=== PATIENT | female | born 1985 | race Caucasian/White ===

== ENCOUNTER 2024-05-15 10:31 | Outpatient (CLI) | payer OTHER, SELFPAY ==
--- NOTE | ~2024-05-15 | MM_ITS ---
EXAMINATION: MM diag david implant BI w franco HISTORY: New baseline following right breast lumpectomy TECHNIQUE: 3-D tomosynthesis images of the breasts were performed and synthetic 2-D images were gener ated. CAD analysis was submitted and interpreted. COMPARISON: 09/17/2021 BREAST PARENCHYMAL COMPOSITION:Dense: The breasts are heterogeneously dense, which may obscure small masses. FINDINGS: Focal distortion in the right central subareolar breast is likely postoperative in nature. No suspicious mass lesion or suspicious microcalcifications identified. Bilateral breast implants are in place. IMPRESSION: No mammographic evidence for malignancy. Probable postoperative distortion in the right subareolar re gion. Six-month follow-up mammogram of the right breast recommended to assure stability of presumed p ostoperative findings. BI-RADS category 3, probably benign findings. Reviewed, dictated and finalized at location . [facility] IMPRESSION: No mammographic evidence for malignancy. Probable postoperative distortion in t he right subareolar region. Six-month follow-up mammogram of the right breast r ecommended to assure stability of presumed postoperative findings. BI-RADS category 3, probably benign findings.
== END 2024-05-15 10:32 | disposition home or self-care (01) ==
LOC: ANHIMG 10:35
DX: N63.10 Unspecified lump in the right breast, unspecified quadrant (principal); R92.8 Other abnormal and inconclusive findings on diagnostic imaging of breast
CPT/HCPCS: 77062; 77066; G0279

== ENCOUNTER 2024-11-13 10:51 | Outpatient (CLI) | payer OTHER, SELFPAY ==
--- NOTE | ~2024-11-13 | MM_ITS ---
EXAMINATION: MM diag david implant RT w franco HISTORY: Prior right lumpectomy TECHNIQUE: 3-D tomosynthesis images of the right breast were performed and synthetic 2-D images were generated. CAD analysis was submitted and interpreted. COMPARISON: 05/15/2024 BREAST PARENCHYMAL COMPOSITION:Not Dense. There are scattered areas of fibroglandular density. FINDINGS: Stable parenchymal appearance of the right breast. No suspicious mass lesion or distortion. No suspicious mass or calcification. IMPRESSION: No mammographic evidence for malignancy. BI-RADS Category 2: Benign finding(s). Reviewed, dictated and finalized at location .
--- OUTSIDE RECORDS SUMMARY | 2024-11-13 11:15 | XMS_ITS | Continuity of Care Document ---
Author Name [facility] Organization [facility] Care Team Providers Care Informatica Developer Name Role Phone [facility] Unavailable Unavailable Problems Combined list of problems from Department of Defense and Veterans Affairs facilities. It does not include entries that were removed or entered in error. 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 0055C[facility] Migraine with aura3 Active 10/10/19 14 Condition Outside Source Comment: Overview: Reports h/o 'silent migraine' with blurry vision without pain Last Assessment & Plan: Outside of , ok to take excedrin as needed, caffeine/ibupro fen/tylenol may be helpful at onset of headache. History indicates aura is typical; discussed with patient that contraceptive options will likely not include combined estrogen-proges terone contraceptives. 005-[facility] Generalized hyperhidrosis2 Active 05/13/20 11 Condition Outside Source Comment: Overview: S/P nerve surgery -[facility] Hypothyroidism Active 05/13/20 11 Condition 0055C[facility] Acute pharyngitis, unspecified Active Condition DoD Adjustment disorder with anxiety Active Condition [address] [place] [address] MAX 3 - Cervical intraepithelial neoplasia grade 3 Active Condition 0055C-[facility] DCIS of breast Active Condition 5C-3 [facility] Mass in right breast Active Condition [address] [place] [address] Palpitations Active Condition [facility] Seasonal allergy Active Condition [address] [place] [address] Allergies, Adverse Reactions, Alerts Combined list of allergies from Department of Defense and Veterans Affairs facilities. It does not include entries that were removed or entered in error. Substance Category Reaction Severity Reaction type Status Date Reported Comments Source Latex Allergy to substance Rash Moderate Active -375 [facility] tenzin No Known Allergies Drug allergy (disorder) active 01/08/2023 [employer] Immunizations Combined list of available immunizations from the Department of Defense and Veterans Affairs facilities. Immunization Series Date Given Administered By Site Reaction Lot Number CVX Code Drug Tire Changer Status Comments Source COVID-19, mRNA, LNP-S, PF, 100 mcg or 50 mcg dose 2020 KOST[place]KA, Moderna US[employer] (MOD) Not Given COVID-19, mRNA, LNP-S, PF, 100 mcg or 50 mcg dose DoD COVID Vaccine Moderna 2020 DUONG ER 207 complet ed Result Comment: Unit: Unknown Manufactu rer: Moderna US, Inc. (MOD) 0055C-3 [facility] COVID-19, mRNA, LNP-S, PF, 100 mcg or 50 mcg dose 2020 KOSTECKA, Modern[employer] US[employer] (MOD) Not Given COVID-19, mRNA, LNP-S, PF, 100 mcg or 50 mcg dose DoD COVID Vaccine Moderna 2020 DUONG ER 207 complet ed Result Comment: Unit: Unknown Manufactu rer: Moderna US, Inc. (MOD) 0055C-3 jh MEDRONNIE Owens influenza, injectable, quadrivalent- pf 2018 NNER [id number] 150 complet ed Result Comment: Manufactu rer: Sanofi Pasteur 0055C-3 jh [facility]- [place]aciela influenza, injectable, quadrivalent- pf 2017 NNER [id number] 150 complet ed Result Comment: Manufactu rer: Sanofi Pasteur 0055C-3 75th EARLE Owens Results Combined list of recent chemistry, hematology and other laboratory results from Department of Defense and Veterans Affairs, ranging from 15 months to all on record, depending upon the facility. Order Name Results Value Reference Range Date Interpretation Specimen Comments Source AP Specimens HPV Typing High Risk Negative 16 (05/10/24 1:11 PM) Negative 05/10 N Interpretiv e Data: HPV Typing High Risk Negative: NEGATIVE for concurrentl y detecting the rest of the 12 high risk types HPV DNA (31,33,35,3 9,45,51,52, 56,58,59,66 and 68) without differentia tion. HPV Typing High Risk Positive: POSITIVE for concurrentl y detecting the rest of the 12 high risk types HPV DNA (31,33,35,3 9,45,51,52, 56,58,59,66 and 68) without differentia tion. The john HPV Test is a qualitative in vitro test for the detection Human Papillomavi luis in clinician-c ollected cervical and vaginal specimens. It detects the following high-risk HPV types 16, 18, 31, 33, 35, 39, 45, 51, 52, 56, 58, 66, and 68. Note: The modificatio n to specimen source of vaginal was developed and its performance characteris tics determined by [facility]. Vaginal source has not been cleared or approved by the U. S. Food and Drug Administrat ion. This modified vaginal specimen HPV test is for clinical purposes. This laboratory is certified under the Clinical Laboratory Improvement Amendments of 1988 (CLIA-88) as qualified to perform high complexity clinical laboratory testing. Clinician collected PreservCyt ThinPrep vaginal specimen are an approved additional specimen source, based on an internal laboratory validation. Limitations : A negative result does NOT preclude the presence of HPV infection because results depend on adequate specimen collection, absence of inhibitors and sufficient DNA to be detected. Correlation with cytologic findings is recommended as applicable. Questions about process or methodology contact Molecular Department at or [phone]. 0109A-[facility] AP Specimens HPV Genotype 18 Negative 15 (05/10/24 1:11 PM) Negative 05/10 N Interpretiv e Data: HPV GENOTYPE 18 Negative: NEGATIVE for HPV genotype 18 DNA. HPV GENOTYPE 18 Positive: POSITIVE for HPV genotype 18 DNA. The john HPV Test is a qualitative in vitro test for the detection Human Papillomavi luis in clinician-c ollected cervical and vaginal specimens. It detects the following high-risk HPV types 16, 18, 31, 33, 35, 39, 45, 51, 52, 56, 58, 66, and 68. Note: The modificatio n to specimen source of vaginal was developed and its performance characteris tics determined by [facility], [facility]. Vaginal source has not been cleared or approved by the U. S. Food and Drug Administrat [facility]. This modified vaginal specimen HPV test is for clinical purposes. This laboratory is certified under the Clinical Laboratory Improvement Amendments of 1988 (CLIA-88) as qualified to perform high complexity clinical laboratory testing. Clinician collected PreservCyt ThinPrep vaginal specimen are an approved additional specimen source, based on an internal laboratory validation. Limitations : A negative result does NOT preclude the presence of HPV infection because results depend on adequate specimen collection, absence of inhibitors and sufficient DNA to be detected. Correlation with cytologic findings is recommended as applicable. Questions about process or methodology contact Molecular Department at or [phone]. 0109A-[facility] AP Specimens HPV Genotype 16 Negative 17 (05/10/24 1:11 PM) Negative 05/10 N Interpretiv e Data: HPV GENOTYPE 16 Negative: NEGATIVE for HPV DNA genotype 16 DNA. HPV GENOTYPE 16 Positive: POSITIVE for HPV genotype 16 DNA. The john HPV Test is a qualitative in vitro test for the detection Human Papillomavi luis in clinician-c ollected cervical and vaginal specimens. It detects the following high-risk HPV types 16, 18, 31, 33, 35, 39, 45, 51, 52, 56, 58, 66, and 68. Note: The modificatio n to specimen source of vaginal was developed and its performance characteris tics determined by [facility], [facility]. Vaginal source has not been cleared or approved by the U. S. Food and Drug Administrat ion. This modified vaginal specimen HPV test is for clinical purposes. This laboratory is certified under the Clinical Laboratory Improvement Amendments of 1988 (CLIA-88) as qualified to perform high complexity clinical laboratory testing. Clinician collected PreservCyt ThinPrep vaginal specimen are an approved additional specimen source, based on an internal laboratory validation. Limitations : A negative result does NOT preclude the presence of HPV infection because results depend on adequate specimen collection, absence of inhibitors and sufficient DNA to be detected. Correlation with cytologic findings is recommended as applicable. Questions about process or methodology contact Molecular Department at or [phone]. 0109A-[facility] AP Specimens AP Cyto [employer] Patient: Daisy Khan Specimen #: [id number] Patholog ist: Accessio n: 4 [facility] DEPARTME NT OF PATHOLOG Y [address] [facility] [address] [place] [id number] Cytology Gynecolo gic Report Patient: Daisy Khan Specimen #: [id number] [facility] ID:: [id number] [facility]: [id number] Taken: 4 13:11 /Age: 2 1985 (Age: 38) Received : 4 12:05 Physicia n(s:): MARIIA ODONNELL Reported : 4 Specimen (s) Received Taken Rec Thin Prep - Cervical w/o reflex HPV 4 13:11 4 12:05 Final Diagnosi s Thin Prep - Cervical w/o reflex HPV: Satisfac tory for evaluati on; endocerv ical componen t present. Negative for intraepi thelial lesion or malignan cy. This Pap test was evaluate d with the shey fletcher of the Thin Prep Imaging System. Elect veroniac y Signed by David Koehler Clinical Diagnosi s and History MAX with LEEP 09/21; no f/u; co test 1yr if neg Prior History Signed Out Specimen # Interpre tation 01/01/20 17 [id number] NEGATIVE 12/13/19 16 [id number] NEGATIVE CPT Codes: A; 34635 The Pap test is a screenin g test for precurso rs of squamous cell carcinom a with an irreduci ble false negative rate of around 5%. It is not designed to detect glandula r lesions. A negative test does not ensure that no disease is present. 05/10 0055C-37 [facility] cott Chemistry eGFR CKD EPI 95 mL/min/1 .73_m2 03/10 Interpretiv e Data: Estimated Glomerular Filtration Rate (eGFR) calculated using the 2020 Chronic Kidney Disease-Epi demiology (CKD-EPI) Collaborati on creatinine equation; units of measure are mL/min/1.73 m2. Results are only valid for adults (>=18 years) whose serum creatinine is in steady state. eGFR calculation s are not valid for patients with acute kidney injury and for patients on dialysis. Creatinine- based estimates of kidney function may also be inaccurate in patients with reduced creatinine generation due to decreased muscle mass (e.g., malnutritio n, severe hypoalbumin emia, sarcopenia, chronic neuromuscul ar disease, amputations , severe heart failure or liver disease) and in patients with increased creatinine generation due to increased muscle mass (e.g., muscle builders, anabolic steroids) or increased dietary intake. CKD is diagnosed based on abnormaliti es of kidney structure or function, present for >3 months, with implication s for health and disease. CKD is classified and staged based on cause, eGFR and albuminuria (quantified as urine albumin to creatinine ratio). An eGFR >60 mL/min/1.73 m2 in the absence of increased urine albumin excretion or structural abnormaliti es does not CKD. eGFR provides only an estimate of measured GFR within +/- 30% for most patients. As mentioned, nutritional status and muscle mass, among many factors, may lead to inaccuracy in the estimate. Consider ordering the creatinine- cystatin C panel if better accuracy is needed for clinical decision-andrea sanchez. eGFR (mL/min/1.7 3 m2) CKD stage Interpretat ion Normal 60-89 Mild decrease 45-59 Mild to moderate decrease 30-44 Moderate to severe decrease 15-29 Severe decrease <15 Kidney failure [address] [place] [address] Chemistry TSH 0.535 mIU/L 0.270 - 4.200 03/10 N Interpretiv e Data: Recommend: TPO/Thyrope roxidase Antibody when TSH result is > 4.2 uIU/mL [address] [place] [address] Chemistry T3 Total 0.78 ng/mL 0.80 - 2.00 03/10 L Interpretiv e Data: METHODOLOGY : Testing performed by electrochem iluminescen t immunoassay (ECLIA). [address] [place] [address] Chemistry T4 Free 1.37 ng/dL 0.93 - 1.70 03/10 N Interpretiv e Data: METHODOLOGY : Testing performed by electrochem iluminescen t immunoassay (ECLIA). [address] [place] [address] Chemistry Sodium 138 mmol/L 136 - 145 03/[address] [place] [address] Chemistry Protein Total 7.0 g/dL 6.4 - 8.3 03/10 N - [address] [place] [address] Chemistry Glucose Lvl 78 mg/dL 74 - 99 03/[address] [place] [address] Chemistry Potassium Lvl 4.3 mmol/L 3.5 - 5.1 03/10 N - [address] [place] [address] Chemistry Creatinine Level 0.80 mg/dL 0.57 - 1.11 03/10 N [address] [place] [address] Chemistry AGAP 7.00 0.00 - 15.00 03/10 N 5A- [address] [place] [address] Chemistry Alk Phos 45 U/L 40 - 150 03/[address] [place] [address] Chemistry Albumin 4.30 g/dL 3.50 - 5.20 03/10 N [address] [place] [address] Chemistry ALT 61 U/L 5 - 55 03/[address] [place] [address] Chemistry AST 48 U/L 5 - 34 03/[address] [facility] Chemistry BUN/Creat Ratio 16 mg/dL 12 - 20 03/[address] [facility] Chemistry Bilirubin Total 0.7 mg/dL 0.2 - 1.2 03/[address] [facility] Chemistry BUN 13 mg/dL 7 - 20 03/[address] [facility] Chemistry Calcium 9.3 mg/dL 8.4 - 10.2 03/[address] [facility] Chemistry CO2 23 mmol/L 22 - 29 03/[address] [facility] Chemistry Chloride 108 mmol/L 98 - 107 03/[address] [facility] Chemistry LDL/HDL 2 03/[address] [facility] Chemistry Triglyceri jah 44 mg/dL 7 - 149 03/10 N Interpretiv e Data: AGES 0-9: Desirable: < 75 mg/dL Borderline High: 75-99 mg/dL High: >/= 100 mg/dL AGES 10-19: Desirable: < 90 mg/dL Borderline High: 90-129 mg/dL High: >/= 130 mg/dL ADULTS: Desirable: < 150 mg/dL Borderline High: 150-199 mg/dL High: >/= 240 mg/dL Very High: >/= 500 mg/dL [address] [place] [address] Chemistry LDL 130 mg/dL 100 - 130 03/10 N Interpretiv e Data: AGES 0-19: Desirable: < 110 mg/dL Borderline High: 110-129 mg/dL High: >/= 130 mg/dL ADULTS: Desirable: <100 mg/dL Near/above optimal: 100-130 mg/dL Borderline High: 131-159 mg/dL High: 160-189 mg/dL Very High: 190 mg/dL 5th [facility] Chemistry Chol/HDL 3 mg/dL 03/[address] [facility] Chemistry Cholestero l Total 205 mg/dL 03/10 H Interpretiv e Data: According to the [employer] [employer] : AGES 0-19: Desirable: < 170 mg/dL Borderline High: 170-199 mg/dL High Blood Cholesterol : >/= 200 mg/dL ADULTS: Desirable < 200 mg/dL Borderline High: 200-239 mg/dL High Blood Cholesterol : >/= 240 mg/dL [address] [place] [address] Chemistry HDL Cholestero l 72 mg/dL 40 - 59 03/10 H Interpretiv e Data: HDL (HIGH DENSITY LIPOPROTEIN ): ADULTS: Low: < 40 mg/dL High: >/= 60 mg/dL AGES 0 -19: Low: < 40 mg/dL Borderline Low: 40 - 45 mg/dL Acceptable: > 45 mg/dL [facility] Chemistry eAvg Glucose 88 mg/dL 03/[address] [place] [address] Chemistry Hemoglobin A1c 4.7 % 4.0 - 5.6 03/10 N Interpretiv e Data: Normal: 4.0 - 5.6% Increased Risk: 5.7 - 6.4% Diabetic Range: 6.5% For patients without diabetes, the normal range for the hemoglobin A1c test is between 4% and 5.6%. Hemoglobin A1c levels between 5.7% and 6.4% indicate increased risk of diabetes, and levels of 6.5% or higher indicate diabetes. Because studies have repeatedly shown that out-of-cont rol diabetes results in complicatio ns from the disease, the goal for people with diabetes is a hemoglobin A1c less than 7%. The higher the hemoglobin A1c, the higher the risks of developing complicatio ns related to diabetes. If confirmatio n is needed, consider recalling the patient and ordering Hemoglobin Electrophor esis. [address] [place] [address] Chemistry TSH 0.229 mIU/L 0.270 - 4.200 12/24 L Interpretiv e Data: Recommend: TPO/Thyrope roxidase Antibody when TSH result is > 4.2 uIU/mL [facility]0A-[facility] Chemistry T4 Free 1.19 ng/dL 0.93 - 1.70 12/24 N Interpretiv e Data: METHODOLOGY : Testing performed by electrochem iluminescen t immunoassay (ECLIA). [facility] Chemistry T3 Total 0.77 ng/mL 0.80 - 2.00 12/24 L Interpretiv e Data: METHODOLOGY : Testing performed by electrochem iluminescen t immunoassay (ECLIA). [facility] Chemistry T4 Free 1.35 ng/dL 0.93 - 1.70 12/24 N Interpretiv e Data: METHODOLOGY : Testing performed by electrochem iluminescen t immunoassay (ECLIA). 5600A-US [facility] Chemistry Hemoglobin A1c LC 5.1 % 09/17 Result Comment: Prediabetes : 5.7 - 6.4 Diabetes: >6.4 Glycemic control for adults with diabetes: <7.0 Performed At: 01 [facility] [place] [address] [place], [place] [id number] Sin Brock MD Ph:[phone] 0248A-[facility] Chemistry Thyrotropi n.EPI 4.040 uIU/mL 09/17 Result Comment: INTERPRETAT ION(S): Recommend: TPO/Thyrope roxidase Antibody when TSH result is > 4.2 uIU/mL Performed by: Epidmiology Laboratory Service [facility] [address] [place] [phone] [facility] Chemistry Albumin Serum.LC 4.9 g/dL 08/11 H Result Comment: Performed At: 01 [facility] [address] Ela Pate [address] [place] [id number] Sin Brock MD Ph:[phone] [facility]248[facility] Chemistry eGFR CKD EPI 97 mL/min/1 .73_m2 08/10 Interpretiv e Data: Estimated Glomerular Filtration Rate (eGFR) calculated using the 2020 Chronic Kidney Disease-Epi demiology (CKD-EPI) Collaborati on creatinine equation; units of measure are mL/min/1.73 m2. Results are only valid for adults ( 18 years) whose serum creatinine is in steady state. eGFR calculation s are not valid for patients with acute kidney injury and for patients on dialysis. C reatinine-b ased estimates of kidney function may also be inaccurate in patients with reduced creatinine generation due to decreased muscle mass (e.g., malnutritio n, severe hypoalbumin emia, sarcopenia, chronic neuromuscul ar disease, amputations , severe heart failure or liver disease) and in patients with increased creatinine generation due to increased muscle mass (e.g., muscle builders, anabolic steroids) or increased dietary intake. As drug clearance is proportiona l to total GFR and not GFR indexed to body surface area (BSA), in individuals with a BSA substantial ly different than 1.73 m2, drug dosing should be based the reported eGFRvalue de-indexed from BSA by multiplying by the individual s BSA and dividing by 1.73. CKD is diagnosed based on abnormaliti es of kidney structure or function, present for >3 months, with implication s for health and disease. CKD is classified and staged based on cause, eGFR and albuminuria (quantified as urine albumin to creatinine ratio). An eGFR >60 mL/min/1.73 m2 in the absence of increased urine albumin excretion or structural abnormaliti es does not represent CKD.eGFR (mL/min/1.7 3 m2) CKD stage Interpretat ion 90 G1 Normal 60-89 G2 Mild decrease 45-59 G3A Mild to moderate decrease 30-44 G3B Moderate to severe decrease 15-29 G4 Severe decrease <15 G5 Kidney failure [facility]248[facility] Chemistry Osmo Calc 271.1 mOsm/kg 261.0 - 280.0 08/10 N 0248A-[facility] Chemistry AGAP 15 7 - 14 08/10 H 0248[facility] Chemistry Chloride 103.0 mmol/L 98.0 - 107.0 08/10 N 0248A-[facility] Chemistry CO2 22.0 mmol/L 21.0 - 30.0 08/10 N 0248A-[facility] Chemistry Calcium 9.5 mg/dL 8.6 - 10.4 08/10 N 0248A-[facility] Chemistry Creatinine Level 0.80 mg/dL 0.50 - 1.20 08/10 N 0248A-[facility] Chemistry BUN 12.00 mg/dL 8.00 - 20.00 08/10 N [facility]248[facility] Chemistry Potassium Lvl 4.30 mmol/L 3.50 - 5.30 08/10 N 0248A-[facility] Chemistry Sodium 140.0 mmol/L 136.0 - 145.0 08/10 N 0248A-[facility] Chemistry Glucose Lvl 116.0 mg/dL 70.0 - 110.0 08/10 H 0248A-[facility] Chemistry Triiodothy ronine.EPI 0.83 ng/mL 08/10 Result Comment: INTERPRETAT ION(S): Performed by: Epidmiology Laboratory Service [facility] [address] [place] [address], [place] [address] 0248[facility] Chemistry Thyrotropi n.EPI 5.580 uIU/mL 08/10 H Result Comment: INTERPRETAT ION(S): Recommend: TPO/Thyrope roxidase Antibody when TSH result is > 4.2 uIU/mL Performed by: Epid[facility]ology Laboratory [facility] [address] [place] [address], [place] [address] 0248[facility] Chemistry T4 Free.EPI 1.17 ng/dL 08/10 Result Comment: INTERPRETAT ION(S): Performed by: [facility] [address] [place] [address], [place] [phone] 0248A-[facility] Hematolog y MPV 8.8 fL 7.4 - 11.0 03/24 N 0248A-[facility] Hematolog y RDW 13.3 % 10.3 - 14.9 03/24 N 0248A-LO [facility] Hematolog y Platelets 242 10^3/uL 171 - [id number] 03/24 N 0248[facility] Hematolog y MCHC 33.7 g/dL 32.3 - 35.5 03/24 N [facility]248[facility] Hematolog y MCV 94.2 fL 81.4 - 93.5 03/24 H 0248[facility] Hematolog y MCH 31.8 pg 26.9 - 32.0 03/24 N 0248A-LO [facility] Hematolog y Hemoglobin 13.2 g/dL 11.5 - 14.3 03/24 N [facility] Hematolog y Hematocrit 39.20 % 34.61 - 41.73 03/24 N [facility] Hematolog y RBC 4.16 10^6/uL 3.85 - 4.02096 03/24 N [facility] Hematolog y WBC 8.3 10^3/uL 3.8 - 9.6103 03/24 N [facility] Chemistry Beta hCG, Urine Qual Negative (03/24/22 2:37 PM) 03/[address] [place], [place] [address]B [facility] Hematolog y Baso Absolute 0.10 10^3/uL 0.03 - 0.68772 03/[address] [place], [place] [address]B [facility] Hematolog y [place] Absolute 0.50 10^3/uL 0.28 - 0.97782 03/24 N [facility] Hematolog y Eos Absolute 0.30 10^3/uL 0.03 - 0.50510 03/24 N [facility] Hematolog y Neutro Absolute 5.30 10^3/uL 1.77 - 6.96815 03/24 N [facility] Hematolog y Lymph Absolute 2.20 10^3/uL 1.23 - 3.74271 03/24 N [facility] Hematolog y Eosinophil % Auto 3.3 % 0.4 - 5.3 03/24 N [facility] Hematolog y Basophil % Auto 1.2 % 0.6 - 2.1 03/24 N [facility] Hematolog y Lymphocyte % Auto 26.0 % 20.0 - 45.2 03/24 N [facility] Hematolog y Monocyte % Auto 6.40 % 4.62 - 11.12 03/24 N [facility] Hematolog y Neutrophil % Auto 63.1 % 42.7 - 69.5 03/24 N [facility] Chemistry CO2 27.0 mmol/L 21.0 - 30.0 03/24 N [facility]248[facility] Chemistry Chloride 102.0 mmol/L 98.0 - 107.0 03/24 N [facility]248[facility] Chemistry Protein Total 7.0 g/dL 6.3 - 8.2 03/24 N [facility]248[facility] Chemistry Calcium 9.8 mg/dL 8.6 - 10.4 03/24 N [facility]248[facility] Chemistry Albumin 4.48 g/dL 3.70 - 4.70 03/24 N [facility] Chemistry ALT 24.0 U/L 4.0 - 39.0 03/24 N [facility] Chemistry AST 23.0 U/L 10.0 - 38.0 03/24 N [facility] Chemistry Alk Phos 76.0 U/L 43.0 - 114.0 03/24 N [facility]248[facility] Chemistry Bilirubin Total 0.4 mg/dL 0.2 - 1.2 03/24 N [facility]248[facility] Chemistry Osmo Calc 264.5 mOsm/kg 261.0 - 280.0 03/24 N [facility] Chemistry AGAP 8 7 - 14 03/24 N [facility] Chemistry A/G Ratio 2 03/24 [facility] Chemistry Glucose Lvl 84.0 mg/dL 70.0 - 110.0 03/24 N [facility] Chemistry Creatinine Level 1.10 mg/dL 0.50 - 1.20 03/24 N [facility] Chemistry BUN 14.00 mg/dL 8.00 - 20.00 03/24 N [facility] Chemistry Potassium Lvl 4.30 mmol/L 3.50 - 5.30 03/24 N [facility] Chemistry Sodium 137.0 mmol/L 136.0 - 145.0 03/24 N [facility] Chemistry eGFR CKD EPI 66 mL/min/1 .73_m2 03/24 Interpretiv e Data: Estimated Glomerular Filtration Rate (eGFR) calculated using the 2020 Chronic Kidney Disease-Epi demiology (CKD-EPI) Collaborati on creatinine equation; units of measure are mL/min/1.73 m2. Results are only valid for adults ( 18 years) whose serum creatinine is in steady state. eGFR calculation s are not valid for patients with acute kidney injury and for patients on dialysis. C reatinine-b ased estimates of kidney function may also be inaccurate in patients with reduced creatinine generation due to decreased muscle mass (e.g., malnutritio n, severe hypoalbumin emia, sarcopenia, chronic neuromuscul ar disease, amputations , severe heart failure or liver disease) and in patients with increased creatinine generation due to increased muscle mass (e.g., muscle builders, anabolic steroids) or increased dietary intake. As drug clearance is proportiona l to total GFR and not GFR indexed to body surface area (BSA), in individuals with a BSA substantial ly different than 1.73 m2, drug dosing should be based the reported eGFRvalue de-indexed from BSA by multiplying by the individual s BSA and dividing by 1.73. CKD is diagnosed based on abnormaliti es of kidney structure or function, present for >3 months, with implication s for health and disease. CKD is classified and staged based on cause, eGFR and albuminuria (quantified as urine albumin to creatinine ratio). An eGFR >60 mL/min/1.73 m2 in the absence of increased urine albumin excretion or structural abnormaliti es does not represent CKD.eGFR (mL/min/1.7 3 m2) CKD stage Interpretat ion 90 G1 Normal 60-89 G2 Mild decrease 45-59 G3A Mild to moderate decrease 30-44 G3B Moderate to severe decrease 15-29 G4 Severe decrease <15 G5 Kidney failure [facility] Vital Signs Combined list of inpatient and outpatient Vital Signs from Department of Defense and Veterans Affairs, ranging from 12 months to all on record, depending upon the facility. Vital Sign Value Date Comments Source Respiratory Rate 16 br/min 03/30/2022 16:11:[address] [place] [address] Systolic Blood Pressure 115 mm[Hg] 03/30/20 16:11:[address] [place] [address] Diastolic Blood Pressure 68 mm[Hg] 022 16:11:[address] [place] [address] Temperature Temporal Artery 36.3 Cinthia 03/30/2022 16:11:[address] [place] [address] BP Site Left arm 03/30/2022 16:11:[address] [place] [address] Mean Arterial Pressure, Calc 84 mm[Hg] 03/30/2022 16:11:[address] [place] [address] Blood Pressure Manual Automatic 03/30/2022 16:11:[address] [place] [address] Peripheral Pulse Rate 85 bpm 03/30/2022 16:11:[address] [place] [address] Temperature Oral 36.7 Cinthia 03/09/2024 15:18:00 [facility] Mean Arterial Pressure, Calc 81 mm[Hg] 03/09/2024 15:18:00 [facility] BP Site Left arm 03/09/2024 15:18:00 [facility] Systolic Blood Pressure 106 mm[Hg] 03/09/20 15:18:00 [facility] Diastolic Blood Pressure 68 mm[Hg] 024 15:18:00 [facility] Respiratory Rate 14 br/min 03/09/2024 15:18:00 [facility] Blood Pressure Manual Automatic 03/09/2024 15:18:00 [facility] Peripheral Pulse Rate 68 bpm 03/09/2024 15:18:00 [facility] Systolic Blood Pressure 111 mm[Hg] 05/10/20 24 17:04:00 [facility] Diastolic Blood Pressure 77 mm[Hg] 024 17:04:00 [facility] Respiratory Rate 14 br/min 05/10/2024 17:04:00 [facility] Blood Pressure Manual Automatic 05/10/2024 17:04:00 [facility] Temperature Oral 36.5 Cinthia 05/10/2024 17:04:00 [facility] Peripheral Pulse Rate 87 bpm 05/10/2024 17:04:00 [facility] BP Site Left arm 05/10/2024 17:04:00 [facility] Mean Arterial Pressure, Calc 88 mm[Hg] 05/10/2024 17:04:00 [facility] Encounters Combined list of: 1) Encounters from Department of Veterans Affairs facilities going backup to the last 18 months, not all VA inpatient encounters are included; 2) Encounters from the Department of [facility] facilities going backup to 280 months. Location Location Details Encounter Type Encounter Number Reason For Visit Attending Provider ADM Date DC Date Status Disposition Source [place] [facility] Team 1) OUTPATIENT [id number] NEW PT, REQ ENDO REFERRA LL//PCM DR PRABHAKAR --NO AVAIL BIBI BELL 08/21 Released w/o Limitations [place] [facility] Team 1) [place] [facility]([facility] Team 3) OUTPATIENT [id number] white patches in mouth,r areli---P A JORGE LUIS Montgomery TREGG 11/18 Released w/o Limitations [place] Call([facility] Team 3) [place]([facility] Team 3) OUTPATIENT [id number] Vaginal dischar ge issues with burning /itchin g//PCM PA JORGE LUIS Montgomery TREGG 12/04 Released w/o Limitations [place] Call([facility] Team 3) [place]([facility] Team 2) TELE CONSULT [id number] Notes Entered by: JORGE LUIS SYED TREGG 05 Dec 2015 1252 ------- ------- ------- ------- -- LAB ELLIESUMI Ambrose Vinod 12/04 Referred for Appointment [place] [facility] M02D Team 2) [place]([facility] Team 2) TELE CONSULT [id number] Notes Entered by: JORGE LUIS SYED TREGG 16 Dec 2015 1642 ------- ------- ------- ------- -- lab ALEXANDER ALVAREZ 12/15 Referred for Appointment [place] [facility] M02D Team 2) [place]([facility] Team 3) OUTPATIENT [id number] DISCUSS SORE THROAT/ /PCM PA PATRICIA WEINBERG 05/19 Released w/o Limitations [place] [facility] Team 3) [place]([facility] Team 3) OUTPATIENT [id number] discuss control //PA JORGE LUIS Montgomery TREGG 07/01 Released w/o Limitations [place] [facility] Team 3) [place]([facility] Team 2) OUTPATIENT [id number] Kobe husain on MARIO BLANCO 07/13 Released w/o Limitations [place] [facility] M[facility] Team 2) [place]([facility] M[facility] Team 2) OUTPATIENT [id number] Sore throst and difficu lty swallow ing//PA TOMAS West 09/07 Released w/o Limitations [place] [facility] Team 2) [place]([facility] Team 3) TELE CONSULT [id number] Notes Entered by: Fredrick NELSON 22 Sep 2016 0735 ------- ------- ------- ------- -- PATIENT REQUEST ING MEDICAT ION FOR VAGINAL INFECTI ON REGAN READ Kamla 09/22 Released to Self Care Odilia Gamez [place]([facility] Team 3) Toribio Gamez Sonja [place]([facility] Team 3) OUTPATIENT [id number] WWE and PAP, referJORGE LUIS Mosley TREGG 12/23 Released w/o Limitations Odilia Gamez Sonja [place]([facility] M02E Team 3) YaniNena Gamez Wood, [place]([facility] Team 3) TELE CONSULT [id number] Notes Entered by: Kamla BUNN 01 Jan 2017 1743 ------- ------- ------- ------- -- PAP Results JOSI BUNN 01/01 Released to Self Care Odilia Gamez Sonja [place]([facility] M02E Team 3) YaniNena Gamez Sonja [place]([facility] Team 2) TELE CONSULT [id number] Notes Entered by: AALIYAH KNOX 25 Mar 2017 1326 ------- ------- ------- ------- -- NETWORK DERMATO LOGY POSTED TO JORGE LUIS CLEARY TREG 03/25 YaniMelissa Gamez Sonja [place]([facility] Team 2) YaniNena Gamez [place]([facility] Team 3) OUTPATIENT [id number] high fever, migrane s, and neck pain// pa AMADOR Mclain 04/15 Released w/o Limitations Odilia Gamez [place]([facility] Team 3) Yani-Willie susanna Gamez [place]([facility]2C Team 1) OUTPATIENT [id number] ER BOOK- LULU E BIBI AGUIRRE 04/22 Released w/o Limitations Odilia BLACKWOOD [place] Bowles([facility]C Team 1) [place]([facility] Team 3) OUTPATIENT [id number] blister s on R and L thighs/ / pa syedJORGE LUIS Dunham TREG 06/23 Released w/o Limitations Odilia keyana [place]([facility] Team 3) [place]([facility] Team 3) TELE CONSULT [id number] Notes Entered by: JORGE LUIS SYED TREG 25 Jun 2017 1348 ------- ------- ------- ------- -- lab JORGE LUIS SYED TREGG 06/25 [place] [facility] Team 3) [place]([facility] Team 3) TELE CONSULT [id number] Notes Entered by: JORGE LUIS SYED TREG 01 Jul 2017 0754 ------- ------- ------- ------- -- lab JORGE LUIS SYED TREGG 07/01 [place] [facility] Team 3) [place] [facility]([employer] try) OUTPATIENT [id number] rx recheck /cl exam TARAH BAH 09/14 Released w/o Limitations [place] Call([facility] met[facility]) [place] [facility]([employer] try) OUTPATIENT [id number] Dry eye check and cl fit [facility] ZUHAIR PATELOTEO Olamide 12/20 Released w/o Limitations [place] Call([facility] met[facility]) [facility] Visit [id number] 05/22 Discharge Disposition: Home or Self Care [facility] Visit [id number] 05/24 Discharge Disposition: Home or Self Care [facility] Visit [id number] 05/26 Discharge Disposition: Home or Self Care [facility] [id number] 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 Procedure Procedure Type Code Date Perfomer Comments Sourc e Prescription & Fitting Bilateral Corneal Lenses (Not Aphakia Prescription & Fitting Bilateral Corneal Lenses (Not Aphakia [id number] [facility] Determination Of Refractive State Determination Of Refractive State [id number] TARAH BAH [facility] Ophthalmological New Patient Start [facility] Care Ophthalmological New Patient Start [facility] Care [id number] TARAH BAH [facility] Screening papanicolaou smear; obtaining, preparing and conveyance of cervical or vaginal smear to laboratory 017 JORGE LUIS SYED [facility] Gynecologic Services Intrauterine Device (IUD) Insertion Gynecologic Services Intrauterine Device (IUD) Insertion [id number] MARIO BLANCO [facility] Screening papanicolaou smear; obtaining, preparing and conveyance of cervical or vaginal smear to laboratory 016 JORGE LUIS SYED [facility] Breast augmentation 004 2004textured, silicone [facility] lumpectomy right breast 022 DCIS [facility] US Guided Brst-R Bx 022 [facility] t D+C 020 B9 endometrium [facility] t LEEP 020 MAX 2-3CIN 375 [facility] t WTE 002 [facility] t Social History Combined list of available smoking, tobacco, and other social history from Department of Defense and Veterans Affairs facilities. Social History Type Response Date Comment Sour e This section is an empty social history section. [facility] Tobacco Never-cigarette user Cigarette use:. Never-other tobacco user (not cigarettes) Other Tobacco use:. Ambulatory Pharmacy Sexual Orientation Ambula tory Pharmacy Gender identity Ambulator y Pharmacy Sex Representation Female (finding) Unknown Organization Assessment and Plan Combined list of future care activities from Department of Defense and Veterans Affairs facilities (e.g., assessment and plan notes, appointments, orders, and referrals). Additional future care activities may be listed in the Plan of Care section. Result Assessment and Plan Date Source Assessment and Plan Extracted from:Title : [employer]PER[employer]/Virtual, US results Author: MARIIA ODONNELL NP Date: 05/31/24 1. E xcessive and frequent menstruation with regular cycle d iscussed options to include cyclic Nsaids, h ormonal bc; pt w ill try cyclic aleve for next few months and contact clinic if no improvement Ordered: CBC w/ Diff 2. O ther specified counseling i ncidental finding of possible pelvic congestion; pt not having issues with pain Ordered: Hepatitis C Antibody Vitamin D 25 Hydroxy Level Pt questions addressed and instructions were provided to the patient. Mariia Odonnell [facility] MOLD SPRAYER [facility] Extracted from:Title: 0055 [facility] virtual results review Author: ECHO MAYORGA NP Date: 05/25/24 1. T est result to patient by telephone P resents to review results of recent diagnostic mammogram performed [facility]. Results not available within system at this time. Informed patient. Will check with admin staff to see if obtained elsewhere. Will call when obtained. 10 minutes total time spent on evaluation and management. 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 E ncounter for gynecological examination (general) (routine) with abnormal findings Over 50% of m inute visit spent face to face with patient on education, reviewing history, and developing plan of care. Continue monthly BSE and yearly well woman exams. Return to clinic in 1 year. Exercise: 30 minutes of moderate exercise 5 days a week including cardio and strength training is recommended for a healthy lifestyle. T his should be in addition to your normal daily work/routine. If you are trying to lose weight more exercise along with a healthy diet is recommended. Supplements/Vitamins: If you are not following, or able to follow a well-balanced diet indicated below due to personal or medical reasons, it is recommended you take a m ultivitamin. This is especially important if you are trying to get as w omen need additional folic acid before and during (400-1000 micrograms per day). Daily calcium intake should be around 1200 mg per day w hich is 120% of the recommended daily allowance if looking at food labels.? W e recommend V itamin D3 2,000-3,000 international units a day i f you have not already been identified with an insufficiency or deficiency. Nutrition: A healthy diet with protein, vegetables, fruits, grains, and dairy is advised. More information including example serving sizes can be found at h ttps://www.choosemyplate.gov/.&# 160; T hese amounts are appropriate for individuals who get less than 30 minutes per day of moderate physical activity, beyond normal daily activities. Those who are more physically active may be able to consume more while staying within calorie needs. Ordered: folic acid(folic acid 1 mg oral tablet), 1 tab(s), Oral, Daily, # 90 tab(s), 3 total refill(s), Maintenance, 1 tab(s) Oral Daily, Pharmacy: [facility] [Not filled] 2. E ncounter for screening for malignant neoplasm of cervix co test 1yr if neg Ordered: AP Cytology [employer] HPV High Risk (16/18/Other) 3. C ervical high risk human papillomavirus (HPV) DNA test positive Ordered: AP Cytology [employer] SUPER[employer]OR HPV High Risk (16/18/Other) 4. E xcessive and frequent menstruation with regular cycle schedule virtual appt with me for 2-3days after US appt Ordered: US Pelvis w/ Transvag non-OB Complete 5. C IN 3 - Cervical intraepithelial neoplasia grade 3 discussed importance of regular pap f/u Pt questions addressed and written discharge instructions were provided to the patient. Mariia Odonnell [facility] SPR[facility] Extracted from:Title: 0055 [facility] Virtual lab f/u Author: TWILA MORGAN PA Date: 03/17/24 1. L iver enzymes abnormal 38 Years-old F emale p resenting v irtually f or l ab r esults. Verified name and . Discussed the following findings: FINDINGS: - Mild elevated A ST/ALT Pt denies a hx of drinking and does not take pain medications very often. Pt denies RUQ pain, changes in urine stool color. Pt has no concerns at this time. PLAN: - 6wk recheck L FT - Follow up in clinic: P RN - All questions answered. Patient verbalized understanding and expressed comfort with this plan. Twila Morgan, 1st Lt, [facility] [place] [address] Extracted from:Title: 0055 [facility] Pre-employment physical/Referral request Author: TWILA MORGAN PA Date: 03/09/24 1. 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 Pt's concerns were addressed below: -PE was unremarkable -Completed and returned form to pt -Pt to f/u after annual labs are completed Twila Morgan, 1st Lt, [facility] [place] [address] Ordered: Comprehensive Metabolic Panel Hemoglobin A1c Lipid Panel 2. S easonal allergy Chronic condition. Well controlled. No other concerns. -Will continue current medication regimen -f/u as needed 3. H ypothyroidism Pt has hx of Brittany's Thyroiditis currently controlled with Synthroid 137mcg and 150mcg. Pt has no had labs completed recently. -Will order labs -Refer to endocrinology for further management -Refill Synthroid Ordered: levothyroxine(Synthroid 137 mcg oral tablet), See Instructions, 1 tab of 137mcg Oral on Wednesday and , and 150mcg on all other days, # 24 tab(s), 3 total refill(s), Maintenance, 1 tab of 137mcg Oral on Wednesday and , and 150mcg on all other days, Pharmacy: [facility] [Not filled] levothyroxine(Synthroid 150 mcg oral tablet), See Instructions, 1 tab of 137mcg Oral on Wednesday and , and 150mcg on all other days, # 60 tab(s), 3 total refill(s), Maintenance, 1 tab of 137mcg Oral on Wednesday and , and 150mcg on all other days, Pharmacy: [facility] [Not filled] Free T4 Level T3 Total Level Thyroid Stimulating Hormone Referral Request 2.0 - [facility] 4. R epeated prescription Chronic condition. Well controlled. No other concerns. -Will continue current medication regimen -f/u as needed 5. M ass in right breast Pt is due for diagnostic mammogram for review. Pt had previous lumpectomy and requires f/u imaging. She has no concerns at this time. Ordered: Referral Request 2.0 - [facility] Orders: buPROPion(buPROPion 300 mg/24 hours (XL) oral tablet, extended release), 1 tab(s), Oral, Daily, # 90 tab(s), 3 total refill(s), Maintenance, 1 tab(s) Oral Daily, Pharmacy: [facility] [Not filled] spironolactone(spironolactone 50 mg oral tablet), 1 tab(s), Oral, Daily, # 90 tab(s), 3 total refill(s), Maintenance, 1 tab(s) Oral Daily, Pharm[facility]: [facility] [Not filled] lifitegrast ophthalmic(Xiidra 5% ophthalmic solution), 1 drop(s), Eye-Both, BID, # 60 EA, 0 total refill(s), Maintenance, 1 drop(s) Eye-Both BID, Pharmacy: [facility] [Not filled] Extracted from:Title: Office Clinic Note - hypothyroidism Author: PRATIMA Schmid, [facility] Date: 01/08/23 1. H ypothyroidism Since her symptoms has resolved on the new dosage, but it is a little over the recommended range, we will decrease to MF 137mcg, and all other day 150mcg and follow up in 6 weeks. Discussed with pt about medication(s) side effects and benefits. Discussed with pt to go to ED or call MD for worsen or new symptoms of increase in fatigue, depression, shortness of breath, chest pain, fever, chills, syncope, nausea or vomiting. Pt understands with plan(s) and has no other concern. Ordered: TSH w/ Reflex FT4 and Total T3 Orders: levothyroxine(Synthroid 137 mcg oral tablet), See Instructions, 1 tab of 137mcg Oral on Wednesday and , and 150mcg on all other days, # 16 tab(s), 0 total refill(s), Maintenance, 1 tab of 137mcg Oral on Wednesday and , and 150mcg on all other days, Pharmacy: [id number] [External Rx levothyroxine(Synthroid 150 mcg oral tablet), See Instructions, 1 tab of 137mcg Oral on Wednesday and , and 150mcg on all other days, # 35 tab(s), 0 total refill(s), Maintenance, 1 tab of 137mcg Oral on Wednesday and , and 150mcg on all other days, Pharmacy: [id number] [External Rx ANTHONY and PHQ9 reviewed from tech's intake. No concern. Yazmin Andujar M.D. GS15 [facility] M[facility]. [facility] Extracted from:Title: Office Clinic Note - labs f/u and palpitation Author: PRATIMA Schmid, [facility] Date: 08/31/22 1. L aboratory test result abnormal We will repeat test of TSH since there may have been an increase in abn TSH with our labs. Also glucose is elevated and we will get A1C. Ordered: Hemoglobin A1c [id number] TSH w/Reflex Testing EPI [id number] 2. P alpitations Discussed that we can send her pt card for possible holtor monitor, pt declines at this time. She will reconsider if it keeps on occuring. No CP or SOB. Pt given ER precautions. Pt understands to go to the ER For any SOB, CP, severe headache, stroke like symptoms; one-sided weakness, droopy face, slurred speech. Pt understands with plan(s) and has no other concern. Mental h ealth intake reviewed. No concern. Extracted from:Title: Pre-op, med refills Author: CAROLIN BURGESS Date: 03/30/22 1. W ell adult -NO previous reaction to anesthesia or bleeding disorder. Labs and PE both shoe pt is good candidate for surgery. -Pt is having lumpectomy tomorrow and is cleared for surgery. 2. H ashimoto thyroiditis -Pt takes 137mcg of Synthroid successfully w/o SE. -Lab ordered to check TSH Ordered: levothyroxine(Synthroid 137 mcg oral tablet), 1 tab(s), Oral, Daily, for thyroid, # 90 tab(s), 0 total refill(s), Maintenance, 1 tab(s) Oral Daily,Instr:for thyroid, Pharmacy: [facility] [External Rx] 3. 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 She will RTC for possible cessation of medication as she feels she is in a better placed now. -Informed pt of [facility] and [facility] for therapy. -Medication refilled, pt aware of SE profile. Ordered: buPROPion(buPROPion 300 mg/24 hours (XL) oral tablet, extended release), 1 tab(s), Oral, Daily, # 90 tab(s), 0 total refill(s), Maintenance, 1 tab(s) Oral Daily, Pharmacy: [facility] [External Rx] 4. S easonal allergy -Pt takes Catrachita daily for allergies and has no lingering symptoms if she does. Orders: fexofenadine(Catrachita 180 mg oral tablet), 1 tab(s), Oral, Daily, PRN as needed for allergy symptoms, # 90 tab(s), 3 total refill(s), Maintenance, 1 tab(s) Oral Daily,PRN:as needed for allergy symptoms, Pharmacy: [facility] [External Rx] spironolactone(spironolactone 50 mg oral tablet), 1 tab(s), Oral, Daily, # 90 tab(s), 3 total refill(s), Maintenance, 1 tab(s) Oral Daily, Pharmacy: [facility] [External Rx] Extracted from:Title: Office Clinic Note - breast pain left Author: YAZMIN ANDUJAR HALL Date: 07/23/21 1. B reast pain W e will get mammo and send to plastic for possible correction. Discussed that may or may not cover the correction procedure. Discussed about process with pt. Pt understands with plan(s) and has no other concern. Ordered: Referral Request 2.0 Referral Request 2.0 Future Scheduled TestsLaboratoryVitamin D 25 Hydroxy Level 05/31/24epatitis C Antibody 05/31/24CBC w/ Diff 05/31/24epatic Function Panel 03/17/24 11/13/2024 [id number] Assessment and Plan Extracted from:Title : H[employer]IP M[employer] SUPERVISOR/Virtual, US results Author: MARIIA ODONNELL NP Date: 05/31/24 1. E xcessive and frequent menstruation with regular cycle d iscussed options to include cyclic Nsaids, h ormonal bc; pt w ill try cyclic aleve for next few months and contact clinic if no improvement Ordered: CBC w/ Diff 2. O ther specified counseling i ncidental finding of possible pelvic congestion; pt not having issues with pain Ordered: Hepatitis C Antibody Vitamin D 25 Hydroxy Level Pt questions addressed and instructions were provided to the patient. Mariia Odonnell [facility] [employer] [facility] Extracted from:Title: 0055 [facility] virtual results review Author: ECHO MAYORGA NP Date: 05/25/24 1. T est result to patient by telephone P resents to review results of recent diagnostic mammogram performed at [place] [facility]. Results not available within system at this time. Informed patient. Will check with admin staff to see if obtained elsewhere. Will call when obtained. 10 minutes total time spent on evaluation and management. 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 E ncounter for gynecological examination (general) (routine) with abnormal findings Over 50% of m inute visit spent face to face with patient on education, reviewing history, and developing plan of care. Continue monthly BSE and yearly well woman exams. Return to clinic in 1 year. Exercise: 30 minutes of moderate exercise 5 days a week including cardio and strength training is recommended for a healthy lifestyle. T his should be in addition to your normal daily work/routine. If you are trying to lose weight more exercise along with a healthy diet is recommended. Supplements/Vitamins: If you are not following, or able to follow a well-balanced diet indicated below due to personal or medical reasons, it is recommended you take a m ultivitamin. This is especially important if you are trying to get as w omen need additional folic acid before and during (400-1000 micrograms per day). Daily calcium intake should be around 1200 mg per day w hich is 120% of the recommended daily allowance if looking at food labels.? W e recommend V itamin D3 2,000-3,000 international units a day i f you have not already been identified with an insufficiency or deficiency. Nutrition: A healthy diet with protein, vegetables, fruits, grains, and dairy is advised. More information including example serving sizes can be found at h ttps://www.choosemyplate.gov/.&# 160; T hese amounts are appropriate for individuals who get less than 30 minutes per day of moderate physical activity, beyond normal daily activities. Those who are more physically active may be able to consume more while staying within calorie needs. Ordered: folic acid(folic acid 1 mg oral tablet), 1 tab(s), Oral, Daily, # 90 tab(s), 3 total refill(s), Maintenance, 1 tab(s) Oral Daily, Pharmacy: [facility] [Not filled] 2. E ncounter for screening for malignant neoplasm of cervix co test 1yr if neg Ordered: AP Cytology H[employer]PER[employer]OR HPV High Risk (16/18/Other) 3. C ervical high risk human papillomavirus (HPV) DNA test positive Ordered: AP Cytology H[employer] SUPERVISOR HPV High Risk (16/18/Other) 4. E xcessive and frequent menstruation with regular cycle schedule virtual appt with me for 2-3days after US appt Ordered: US Pelvis w/ Transvag non-OB Complete 5. C IN 3 - Cervical intraepithelial neoplasia grade 3 discussed importance of regular pap f/u Pt questions addressed and written discharge instructions were provided to the patient. Mariia Odonnell [facility] M[employer] SPR[employer]ER [facility] Extracted from:Title: 0055 [facility] Virtual lab f/u Author: TWILA MORGAN PA Date: 03/17/24 1. L iver enzymes abnormal 38 Years-old F emale p resenting v irtually f or l ab r esults. Verified name and . Discussed the following findings: FINDINGS: - Mild elevated A ST/ALT Pt denies a hx of drinking and does not take pain medications very often. Pt denies RUQ pain, changes in urine stool color. Pt has no concerns at this time. PLAN: - 6wk recheck L FT - Follow up in clinic: P RN - All questions answered. Patient verbalized understanding and expressed comfort with this plan. Twila Morgan, 1st Lt, P A[facility] [place] [address] Extracted from:Title: 0055 [facility] Pre-employment physical/Referral request Author: TWILA MORGAN PA Date: 03/09/24 1. 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 Pt's concerns were addressed below: -PE was unremarkable -Completed and returned form to pt -Pt to f/u after annual labs are completed Twila Morgan, 1st Lt, [facility] [place] [address] Ordered: Comprehensive Metabolic Panel Hemoglobin A1c Lipid Panel 2. S easonal allergy Chronic condition. Well controlled. No other concerns. -Will continue current medication regimen -f/u as needed 3. H ypothyroidism Pt has hx of Brittany's Thyroiditis currently controlled with Synthroid 137mcg and 150mcg. Pt has no had labs completed recently. -Will order labs -Refer to endocrinology for further management -Refill Synthroid Ordered: levothyroxine(Synthroid 137 mcg oral tablet), See Instructions, 1 tab of 137mcg Oral on Wednesday and , and 150mcg on all other days, # 24 tab(s), 3 total refill(s), Maintenance, 1 tab of 137mcg Oral on Wednesday and , and 150mcg on all other days, Pharmacy: [facility] [Not filled] levothyroxine(Synthroid 150 mcg oral tablet), See Instructions, 1 tab of 137mcg Oral on Wednesday and , and 150mcg on all other days, # 60 tab(s), 3 total refill(s), Maintenance, 1 tab of 137mcg Oral on Wednesday and , and 150mcg on all other days, Pharmacy: [facility] [Not filled] Free T4 Level T3 Total Level Thyroid Stimulating Hormone Referral Request 2.0 - [facility] 4. R epeated prescription Chronic condition. Well controlled. No other concerns. -Will continue current medication regimen -f/u as needed 5. M ass in right breast Pt is due for diagnostic mammogram for review. Pt had previous lumpectomy and requires f/u imaging. She has no concerns at this time. Ordered: Referral Request 2.0 - [facility] Orders: buPROPion(buPROPion 300 mg/24 hours (XL) oral tablet, extended release), 1 tab(s), Oral, Daily, # 90 tab(s), 3 total refill(s), Maintenance, 1 tab(s) Oral Daily, Pharmacy: [facility] [Not filled] spironolactone(spironolactone 50 mg oral tablet), 1 tab(s), Oral, Daily, # 90 tab(s), 3 total refill(s), Maintenance, 1 tab(s) Oral Daily, Pharmacy: [facility] [Not filled] lifitegrast ophthalmic(Xiidra 5% ophthalmic solution), 1 drop(s), Eye-Both, BID, # 60 EA, 0 total refill(s), Maintenance, 1 drop(s) Eye-Both BID, Pharmacy: [facility] [Not filled] Extracted from:Title: Office Clinic Note - hypothyroidism Author: PRATIMA Schmid [facility] Date: 01/08/23 1. H ypothyroidism Since her symptoms has resolved on the new dosage, but it is a little over the recommended range, we will decrease to MF 137mcg, and all other day 150mcg and follow up in 6 weeks. Discussed with pt about medication(s) side effects and benefits. Discussed with pt to go to ED or call MD for worsen or new symptoms of increase in fatigue, depression, shortness of breath, chest pain, fever, chills, syncope, nausea or vomiting. Pt understands with plan(s) and has no other concern. Ordered: TSH w/ Reflex FT4 and Total T3 Orders: levothyroxine(Synthroid 137 mcg oral tablet), See Instructions, 1 tab of 137mcg Oral on Wednesday and , and 150mcg on all other days, # 16 tab(s), 0 total refill(s), Maintenance, 1 tab of 137mcg Oral on Wednesday and , and 150mcg on all other days, Pharmacy: [id number] [External Rx levothyroxine(Synthroid 150 mcg oral tablet), See Instructions, 1 tab of 137mcg Oral on Wednesday and , and 150mcg on all other days, # 35 tab(s), 0 total refill(s), Maintenance, 1 tab of 137mcg Oral on Wednesday and , and 150mcg on all other days, Pharmacy: [id number] [External Rx ANTHONY and PHQ9 reviewed from tech's intake. No concern. Yazmin Andujar M.D. GS15 [employer] M[employer]. LAAFB Extracted from:Title: Office Clinic Note - labs f/u and palpitation Author: PRATIMA Schmid, [facility] Date: 08/31/22 1. L aboratory test result abnormal We will repeat test of TSH since there may have been an increase in abn TSH with our labs. Also glucose is elevated and we will get A1C. Ordered: Hemoglobin A1c [id number] TSH w/Reflex Testing EPI [id number] 2. P alpitations Discussed that we can send her pt card for possible holtor monitor, pt declines at this time. She will reconsider if it keeps on occuring. No CP or SOB. Pt given ER precautions. Pt understands to go to the ER For any SOB, CP, severe headache, stroke like symptoms; one-sided weakness, droopy face, slurred speech. Pt understands with plan(s) and has no other concern. Mental h ealth intake reviewed. No concern. Extracted from:Title: Pre-op, med refills Author: CAROLIN BURGESS Date: 03/30/22 1. W ell adult -NO previous reaction to anesthesia or bleeding disorder. Labs and PE both shoe pt is good candidate for surgery. -Pt is having lumpectomy tomorrow and is cleared for surgery. 2. H ashimoto thyroiditis -Pt takes 137mcg of Synthroid successfully w/o SE. -Lab ordered to check TSH Ordered: levothyroxine(Synthroid 137 mcg oral tablet), 1 tab(s), Oral, Daily, for thyroid, # 90 tab(s), 0 total refill(s), Maintenance, 1 tab(s) Oral Daily,Instr:for thyroid, Pharmacy: [facility] [External Rx] 3. 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 She will RTC for possible cessation of medication as she feels she is in a better placed now. -Informed pt of [facility] and [facility] for therapy. -Medication refilled, pt aware of SE profile. Ordered: buPROPion(buPROPion 300 mg/24 hours (XL) oral tablet, extended release), 1 tab(s), Oral, Daily, # 90 tab(s), 0 total refill(s), Maintenance, 1 tab(s) Oral Daily, Pharmacy: [facility] [External Rx] 4. S easonal allergy -Pt takes Catrachita daily for allergies and has no lingering symptoms if she does. Orders: fexofenadine(Catrachita 180 mg oral tablet), 1 tab(s), Oral, Daily, PRN as needed for allergy symptoms, # 90 tab(s), 3 total refill(s), Maintenance, 1 tab(s) Oral Daily,PRN:as needed for allergy symptoms, Pharmacy: [facility] [External Rx] spironolactone(spironolactone 50 mg oral tablet), 1 tab(s), Oral, Daily, # 90 tab(s), 3 total refill(s), Maintenance, 1 tab(s) Oral Daily, Pharmacy: [facility] [External Rx] Extracted from:Title: Office Clinic Note - breast pain left Author: ANDUJAR YAZMIN HALL Date: 07/23/21 1. B reast pain W e will get mammo and send to plastic for possible correction. Discussed that may or may not cover the correction procedure. Discussed about process with pt. Pt understands with plan(s) and has no other concern. Ordered: Referral Request 2.0 Referral Request 2.0 Future Scheduled TestsLaboratoryVitamin D 25 Hydroxy Level 05/31/24epatitis C Antibody 05/31/24CBC w/ Diff 05/31/24epatic Function Panel 03/17/24 11/13/[address] [place] [address] Assessment and Plan Extracted from:Title : H[employer]IP [employer] SUPERVISOR/Virtual, US results Author: MARIIA ODONNELL NP Date: 05/31/24 1. E xcessive and frequent menstruation with regular cycle d iscussed options to include cyclic Nsaids, h ormonal bc; pt w ill try cyclic aleve for next few months and contact clinic if no improvement Ordered: CBC w/ Diff 2. O ther specified counseling i ncidental finding of possible pelvic congestion; pt not having issues with pain Ordered: Hepatitis C Antibody Vitamin D 25 Hydroxy Level Pt questions addressed and instructions were provided to the patient. Mariia Odonnell [facility] [employer] [facility] Extracted from:Title: 0055 [facility] virtual results review Author: ECHO MAYORGA NP Date: 05/25/24 1. T est result to patient by telephone P resents to review results of recent diagnostic mammogram performed at [place] [facility]. Results not available within system at this time. Informed patient. Will check with admin staff to see if obtained elsewhere. Will call when obtained. 10 minutes total time spent on evaluation and management. 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 E ncounter for gynecological examination (general) (routine) with abnormal findings Over 50% of m inute visit spent face to face with patient on education, reviewing history, and developing plan of care. Continue monthly BSE and yearly well woman exams. Return to clinic in 1 year. Exercise: 30 minutes of moderate exercise 5 days a week including cardio and strength training is recommended for a healthy lifestyle. T his should be in addition to your normal daily work/routine. If you are trying to lose weight more exercise along with a healthy diet is recommended. Supplements/Vitamins: If you are not following, or able to follow a well-balanced diet indicated below due to personal or medical reasons, it is recommended you take a m ultivitamin. This is especially important if you are trying to get as w omen need additional folic acid before and during (400-1000 micrograms per day). Daily calcium intake should be around 1200 mg per day w hich is 120% of the recommended daily allowance if looking at food labels.? W e recommend V itamin D3 2,000-3,000 international units a day i f you have not already been identified with an insufficiency or deficiency. Nutrition: A healthy diet with protein, vegetables, fruits, grains, and dairy is advised. More information including example serving sizes can be found at h ttps://www.choosemyplate.gov/.&# 160; T hese amounts are appropriate for individuals who get less than 30 minutes per day of moderate physical activity, beyond normal daily activities. Those who are more physically active may be able to consume more while staying within calorie needs. Ordered: folic acid(folic acid 1 mg oral tablet), 1 tab(s), Oral, Daily, # 90 tab(s), 3 total refill(s), Maintenance, 1 tab(s) Oral Daily, Pharmacy: [facility] [Not filled] 2. E ncounter for screening for malignant neoplasm of cervix co test 1yr if neg Ordered: AP Cytology H[employer] SUPERVISOR HPV High Risk (16/18/Other) 3. C ervical high risk human papillomavirus (HPV) DNA test positive Ordered: AP Cytology H[employer] SUPERVISOR HPV High Risk (16/18/Other) 4. E xcessive and frequent menstruation with regular cycle schedule virtual appt with me for 2-3days after US appt Ordered: US Pelvis w/ Transvag non-OB Complete 5. C IN 3 - Cervical intraepithelial neoplasia grade 3 discussed importance of regular pap f/u Pt questions addressed and written discharge instructions were provided to the patient. Mariia Odonnell [facility] M[employer] SPR[employer]ER [facility] Extracted from:Title: 0055 [facility] Virtual lab f/u Author: TWILA MORGAN PA Date: 03/17/24 1. L iver enzymes abnormal 38 Years-old F emale p resenting v irtually f or l ab r esults. Verified name and . Discussed the following findings: FINDINGS: - Mild elevated A ST/ALT Pt denies a hx of drinking and does not take pain medications very often. Pt denies RUQ pain, changes in urine stool color. Pt has no concerns at this time. PLAN: - 6wk recheck L FT - Follow up in clinic: P RN - All questions answered. Patient verbalized understanding and expressed comfort with this plan. Twila Morgan, 1st Lt, [facility] [place] [address] Extracted from:Title: 0055 [facility] Pre-employment physical/Referral request Author: TWILA MORGAN PA Date: 03/09/24 1. 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 Pt's concerns were addressed below: -PE was unremarkable -Completed and returned form to pt -Pt to f/u after annual labs are completed Twila Morgan, 1st Lt, [facility] [place] [address] Ordered: Comprehensive Metabolic Panel Hemoglobin A1c Lipid Panel 2. S easonal allergy Chronic condition. Well controlled. No other concerns. -Will continue current medication regimen -f/u as needed 3. H ypothyroidism Pt has hx of Brittany's Thyroiditis currently controlled with Synthroid 137mcg and 150mcg. Pt has no had labs completed recently. -Will order labs -Refer to endocrinology for further management -Refill Synthroid Ordered: levothyroxine(Synthroid 137 mcg oral tablet), See Instructions, 1 tab of 137mcg Oral on Wednesday and , and 150mcg on all other days, # 24 tab(s), 3 total refill(s), Maintenance, 1 tab of 137mcg Oral on Wednesday and , and 150mcg on all other days, Pharmacy: [facility] [Not filled] levothyroxine(Synthroid 150 mcg oral tablet), See Instructions, 1 tab of 137mcg Oral on Wednesday and , and 150mcg on all other days, # 60 tab(s), 3 total refill(s), Maintenance, 1 tab of 137mcg Oral on Wednesday and , and 150mcg on all other days, Pharmacy: [facility] [Not filled] Free T4 Level T3 Total Level Thyroid Stimulating Hormone Referral Request 2.0 - [facility] 4. R epeated prescription Chronic condition. Well controlled. No other concerns. -Will continue current medication regimen -f/u as needed 5. M ass in right breast Pt is due for diagnostic mammogram for review. Pt had previous lumpectomy and requires f/u imaging. She has no concerns at this time. Ordered: Referral Request 2.0 - [facility] Orders: buPROPion(buPROPion 300 mg/24 hours (XL) oral tablet, extended release), 1 tab(s), Oral, Daily, # 90 tab(s), 3 total refill(s), Maintenance, 1 tab(s) Oral Daily, Pharmacy: [facility] [Not filled] spironolactone(spironolactone 50 mg oral tablet), 1 tab(s), Oral, Daily, # 90 tab(s), 3 total refill(s), Maintenance, 1 tab(s) Oral Daily, Pharmacy: [facility] [Not filled] lifitegrast ophthalmic(Xiidra 5% ophthalmic solution), 1 drop(s), Eye-Both, BID, # 60 EA, 0 total refill(s), Maintenance, 1 drop(s) Eye-Both BID, Pharmacy: [facility] [Not filled] Extracted from:Title: Office Clinic Note - hypothyroidism Author: PRATIMA Schmid [facility] Date: 01/08/23 1. H ypothyroidism Since her symptoms has resolved on the new dosage, but it is a little over the recommended range, we will decrease to MF 137mcg, and all other day 150mcg and follow up in 6 weeks. Discussed with pt about medication(s) side effects and benefits. Discussed with pt to go to ED or call MD for worsen or new symptoms of increase in fatigue, depression, shortness of breath, chest pain, fever, chills, syncope, nausea or vomiting. Pt understands with plan(s) and has no other concern. Ordered: TSH w/ Reflex FT4 and Total T3 Orders: levothyroxine(Synthroid 137 mcg oral tablet), See Instructions, 1 tab of 137mcg Oral on Wednesday and , and 150mcg on all other days, # 16 tab(s), 0 total refill(s), Maintenance, 1 tab of 137mcg Oral on Wednesday and , and 150mcg on all other days, Pharmacy: [id number] [External Rx levothyroxine(Synthroid 150 mcg oral tablet), See Instructions, 1 tab of 137mcg Oral on Wednesday and , and 150mcg on all other days, # 35 tab(s), 0 total refill(s), Maintenance, 1 tab of 137mcg Oral on Wednesday and , and 150mcg on all other days, Pharmacy: [id number] [External Rx ANTHONY and PHQ9 reviewed from tech's intake. No concern. Yazmin Andujar M.D. GS15 [employer] M[employer]. LAA[facility] Extracted from:Title: Office Clinic Note - labs f/u and palpitation Author: PRATIMA Schmid, [facility]X [facility] Date: 08/31/22 1. L aboratory test result abnormal We will repeat test of TSH since there may have been an increase in abn TSH with our labs. Also glucose is elevated and we will get A1C. Ordered: Hemoglobin A1c [id number] TSH w/Reflex Testing EPI [id number] 2. P alpitations Discussed that we can send her pt card for possible holtor monitor, pt declines at this time. She will reconsider if it keeps on occuring. No CP or SOB. Pt given ER precautions. Pt understands to go to the ER For any SOB, CP, severe headache, stroke like symptoms; one-sided weakness, droopy face, slurred speech. Pt understands with plan(s) and has no other concern. Mental h ealth intake reviewed. No concern. Extracted from:Title: Pre-op, med refills Author: CAROLIN BURGESS Date: 03/30/22 1. W ell adult -NO previous reaction to anesthesia or bleeding disorder. Labs and PE both shoe pt is good candidate for surgery. -Pt is having lumpectomy tomorrow and is cleared for surgery. 2. H ashimoto thyroiditis -Pt takes 137mcg of Synthroid successfully w/o SE. -Lab ordered to check TSH Ordered: levothyroxine(Synthroid 137 mcg oral tablet), 1 tab(s), Oral, Daily, for thyroid, # 90 tab(s), 0 total refill(s), Maintenance, 1 tab(s) Oral Daily,Instr:for thyroid, Pharmacy: [facility] [External Rx] 3. 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 She will RTC for possible cessation of medication as she feels she is in a better placed now. -Informed pt of [facility] and [facility] for therapy. -Medication refilled, pt aware of SE profile. Ordered: buPROPion(buPROPion 300 mg/24 hours (XL) oral tablet, extended release), 1 tab(s), Oral, Daily, # 90 tab(s), 0 total refill(s), Maintenance, 1 tab(s) Oral Daily, Pharmacy: [facility] [External Rx] 4. S easonal allergy -Pt takes Catrachita daily for allergies and has no lingering symptoms if she does. Orders: fexofenadine(Catrachita 180 mg oral tablet), 1 tab(s), Oral, Daily, PRN as needed for allergy symptoms, # 90 tab(s), 3 total refill(s), Maintenance, 1 tab(s) Oral Daily,PRN:as needed for allergy symptoms, Pharmacy: [facility] [External Rx] spironolactone(spironolactone 50 mg oral tablet), 1 tab(s), Oral, Daily, # 90 tab(s), 3 total refill(s), Maintenance, 1 tab(s) Oral Daily, Pharmacy: [facility] [External Rx] Extracted from:Title: Office Clinic Note - breast pain left Author: YAZMIN ANDUJAR HALL Date: 07/23/21 1. B reast pain W e will get mammo and send to [facility] for possible correction. Discussed that may or may not cover the correction procedure. Discussed about process with pt. Pt understands with plan(s) and has no other concern. Ordered: Referral Request 2.0 Referral Request 2.0 Future Scheduled TestsLaboratoryVitamin D 25 Hydroxy Level 05/31/24epatitis C Antibody 05/31/24CBC w/ Diff 05/31/24epatic Function Panel 03/17/24 11/13/2024 Unknown Organization Functional Status Combined list of recent functional and cognitive assessments recorded at [facility] Functional [place] Measurement (FIM) Scale: 1 = Total Assistance (Subject = 0% +), 2 = Maximal Assistance (Subject = 25% +), 3 = Moderate Assistance (Subject = 50% +), 4 = Minimal Assistance (Subject = 75% +), 5 = Supervision, 6 = Modified [place] (Device), 7 = Complete [place] (Timely, Safely). Assessment Date/Time Source Assessment Type Assessment Skill Assessment Score Assessment Details No data available for this section
== END 2024-11-13 10:52 | disposition home or self-care (01) ==
LOC: ANHIMG 10:53
DX: R92.8 Other abnormal and inconclusive findings on diagnostic imaging of breast (principal)
CPT/HCPCS: 77061; 77065; G0279